=== PATIENT | male | born 1995 | race African-American/Black ===

== ENCOUNTER 2019-01-17 09:07 | Emergency (ER) | payer OTHER ==
[2019-01-17 09:12] VITALS: TEMP 98.4
[2019-01-17] MEDS ORDERED: KETOROLAC 60 MG/2 ML VIAL IM STA (09:36)
--- NOTE | 2019-01-17 09:48 | XR ---
EXAMINATION TYPE: XR chest 2V DATE OF EXAM: 01/17/2019 COMPARISON: NONE HISTORY: Cough TECHNIQUE: Frontal and lateral views of the chest are obtained. FINDINGS: There is no focal air space opacity, pleural effusion, or pneumothorax seen. The cardiac silhouette size is within normal limits. The osseous structures are intact. There is bronchial wall thickening. IMPRESSION: Correlate for bronchitis, reactive airways disease.
--- NOTE | 2019-01-17 10:45 | ED ---
URI HPI - General Chief Complaint: Upper Respiratory Infection Stated Complaint: poss sinus infection Time Seen by Provider: 01/17/19 09:15 Source: patient, RN notes reviewed Mode of arrival: ambulatory Limitations: no limitations - History of Present Illness Initial Comments: 23-year-old male presents emergency Department chief complaint of not feeling well. Patient states she's had congestion, cough, headache last 6 days. Patient states that nothing [id number] is helping. Patient denies any nausea vomiting diarrhea constipation. Denies any neck pain neck stiffness. Patient misses sick contacts. Patient believes he has a sinus infection. Patient states his cough is nonproductive. - Related Data Previous Rx's Medication Instructions Recorded Amoxicillin/Potassium Clav 1 tab PO Q12HR #20 tab 01/17/19 [Augmentin 875-125 Tablet] predniSONE 50 mg PO DAILY #5 tab 01/17/19 Allergies Allergy/AdvReac Type Severity Reaction Status Date / Time No Known Allergies Allergy Verified 01/17/19 09:12 Review of Systems ROS Statement: Those systems with pertinent positive or pertinent negative responses have been documented in the HPI. ROS Other: All systems not noted in ROS Statement are negative. Past Medical History Past Medical History: No Reported History History of Any Multi-Drug Resistant Organisms: None Reported Past Surgical History: No Surgical Hx Reported Past Psychological History: No Psychological Hx Reported Smoking Status: Current every day smoker Past Alcohol Use History: Occasional Past Drug Use History: None Reported General Exam Limitations: no limitations General appearance: alert, in no apparent distress Head exam: Present: atraumatic, normocephalic, normal inspection Eye exam: Present: normal appearance, PERRL, EOMI. Absent: scleral icterus, conjunctival injection, periorbital swelling ENT exam: Present: normal exam, normal oropharynx, mucous membranes moist, TM's normal bilaterally, normal external ear exam Neck exam: Present: normal inspection, full ROM. Absent: tenderness, meningismus, lymphadenopathy Respiratory exam: Present: normal lung sounds bilaterally. Absent: respiratory distress, wheezes, rales, rhonchi, stridor Cardiovascular Exam: Present: regular rate, normal rhythm, normal heart sounds. Absent: systolic murmur, diastolic murmur, rubs, gallop, clicks GI/Abdominal exam: Present: soft, normal bowel sounds. Absent: distended, tenderness, guarding, rebound, rigid Neurological exam: Present: alert, oriented X3, CN II-XII intact Skin exam: Present: warm, dry, intact, normal color. Absent: rash Course Vital Signs 01/17/19 01/17/19 09:08 10:26 Temperature 98.4 F Pulse Rate 112 H Respiratory 20 20 Rate Blood Pressure 105/57 O2 Sat by Pulse 100 Oximetry Medical Decision Making - Medical Decision Making 23-year-old male presented for cough congestion not feeling well. Patient we treated for acute bronchitis, sinusitis. Patient placed on Augmentin and prednisone. Patient had negative flu with chest x-ray showing sent bronchitis. Patient is stable for discharge - Lab Data Lab Results 01/17/19 Range/Units 10:17 Influenza Type A RNA Not Detected (Not Detectd) Influenza Type B (PCR) Not Detected (Not Detectd) Disposition Clinical Impression: Bronchitis, Sinusitis Disposition: HOME SELF-CARE Condition: Stable Instructions (If sedation given, give patient instructions): Upper Respiratory Infection (ED) Additional Instructions: Please return to the Emergency Department if symptoms worsen or any other concerns. Prescriptions: Amoxicillin/Potassium Clav [Augmentin 875-125 Tablet] 1 tab PO Q12HR #20 tab predniSONE 50 mg PO DAILY #5 tab Is patient prescribed a controlled substance at d/c from ED?: No Referrals: None,Stated [Primary Care Provider] - 1-2 days Time of Disposition: 11:01
[2019-01-17 11:25] VITALS: BP 118/72; PULSE 88; RESP 18
== END 2019-01-17 11:26 | disposition home or self-care (01) ==
LOC: EC 09:07
DX: J20.9 Acute bronchitis, unspecified (principal); J32.9 Chronic sinusitis, unspecified; F17.200 Nicotine dependence, unspecified, uncomplicated
CPT/HCPCS: 87502; 71046; 99284; 96372; J1885